=== PATIENT | male | born 1995 | race Caucasian/White ===

== ENCOUNTER 2019-05-31 21:18 | Emergency (ER) | payer OTHER ==
[2019-05-31] MEDS ORDERED: IBUPROFEN 400 MG TABLET (FP) PO ONE ×2 (21:35→21:36)
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
[2019-05-31 21:41] VITALS: BP 148/93; PULSE 70; TEMP 98; BMI 22.7
== END 2019-05-31 21:41 | disposition home or self-care (01) ==
LOC: FER 21:18
DX: T20.40XA Corrosion of unspecified degree of head, face, and neck, unspecified site, initial encounter (principal); X58.XXXA Exposure to other specified factors, initial encounter; Y93.89 Activity, other specified; Y92.59 Other trade areas as the place of occurrence of the external cause; Y99.0 Civilian activity done for income or pay
CPT/HCPCS: 99281-25